=== PATIENT | female | born 1995 | race Two or more races ===

== ENCOUNTER 2025-02-18 11:04 | Emergency (ER) | payer OTHER ==
[~2025-02-18] VITALS: Ht 154.9 cm; Wt 63.5 kg
[2025-02-18 11:08] VITALS: BP 100/70; O2SAT 98
[2025-02-18] MEDS ORDERED: ZOLOFT50 MG PO (11:08)
[2025-02-18] MEDS ORDERED: KETOROLAC TROMETHAMINE 15 MG VIAL IM ONE (12:30)
[2025-02-18] MEDS ORDERED: CEFTRIAXONE SODIUM 1,000 MG VIAL IM ONE (12:30)
[2025-02-18] MEDS ORDERED: ACETAMINOPHEN 325 MG TABLET PO ONE (12:30)
[2025-02-18 13:52] LABS: BASO % 1.4 % (0.1-1.2); EOS # 0.25 (0.04-0.54); EOS % 5.0 % (0.7-7.0); LYMPH # 1.75 (1.18-3.74); LYMPH % 35.1 % (19.3-53.1); MEAN PLATELET VOLUME 10.20 fl (9.4-12.4); MONO # 0.42 (0.24-0.82); MONO % 8.4 % (4.7-12.5); NEUT # 2.49 (1.56-6.13); NEUT % 49.9 % (34.0-71.1); RED CELL DISTRIBUTION WIDTH 13.2 % (11.6-14.4)
[2025-02-18 14:21] LABS: ERYTHROCYTE SEDIMENTATION RATE 19 mm/hr (0-20)
[2025-02-18 14:39] LABS: ALT/SGPT 22.0 U/L (12-78); AST/SGOT 11.0 U/L (15-37); BILIRUBIN TOTAL 0.64 mg/dL (0.3-1.2); BUN CREA RATIO 25.0 (7.0-25.0); CREATININE SERUM 0.64 mg/dL (0.55-1.02); GFR 110.49; GLOBULINA 3.8 G/DL (2.4-3.5); GLUCOSE FASTING 86.0 mg/dL (65-100); OSMOLALITY SERUM 285.0 MOSM/KG (275-295)
[2025-02-18] MEDS ORDERED: MEDROLPACK PO (18:37)
[2025-02-18] MEDS ORDERED: NORFLEX100MG PO (18:37)
[2025-02-18] MEDS ORDERED: MAXITROL EYE DRO5 ML OP (18:41)
== END 2025-02-18 19:02 | disposition home or self-care (01) ==
LOC: ER 11:05
PROVIDERS: General Practice
DX: M54.2 Cervicalgia (principal); Z88.8 Allergy status to other drugs, medicaments and biological substances